=== PATIENT | female | born 1955 | race Caucasian/White ===

== ENCOUNTER 2017-05-19 19:41 | Observation (INO) | payer BC ==
--- NOTE | 2017-05-19 20:22 | RAD ---
HISTORY: Syncope COMPARISONS: May 17, 2010 VIEWS:1: Single frontal portable view of the chest at 8:19 PM FINDINGS: LINES AND TUBES: None. CARDIOMEDIASTINAL SILHOUETTE: The cardiomediastinal silhouette is normal for portable technique. PLEURA: The costophrenic angles are sharp. No pleural abnormalities are noted. LUNG PARENCHYMA: The lungs are clear. ABDOMEN: The upper abdomen is clear. There is no subphrenic gas. BONES AND SOFT TISSUES: There is postsurgical change to the right shoulder IMPRESSION: NO ACTIVE CARDIOPULMONARY DISEASE.
[2017-05-19 20:32] LABS: Urine Bacteria Absent (Absent); Urine Bilirubin Negative (Negative); Urine Glucose Negative (Negative); Urine Nitrite Negative (Negative)
--- NOTE | 2017-05-19 20:41 | RAD ---
HISTORY: Syncope COMPARISONS: May 17, 2010 TECHNIQUE: Multiple contiguous axial CT scans were obtained of the head without intravenous contrast. FINDINGS: HEMORRHAGE/INFARCT: There is no hemorrhage or acute infarct. MASSES/SHIFT: There is no mass or shift. EXTRA-AXIAL SPACES: There are no extra-axial fluid collections. SULCI AND VENTRICLES: The sulci and ventricles are normal in size and position for the patient's stated age. CEREBRUM: There are no focal parenchymal abnormalities. BRAINSTEM: There are no focal parenchymal abnormalities. CEREBELLUM: There are no focal parenchymal abnormalities. VESSELS: The vessels are grossly normal. PARANASAL SINUSES: The paranasal sinuses are clear. ORBITS: The orbits are unremarkable. BONES AND SOFT TISSUE: No bone or soft tissue abnormalities are noted. OTHER: None IMPRESSION: NO ACUTE INTRACRANIAL PATHOLOGY.
[2017-05-19 21:12] LABS: Hematocrit 37 % (35-47); Hemoglobin 12.1 g/dl (12.0-16.0); Mean Corpuscular HGB Conc 33 g/dl (31-36); Mean Corpuscular Hemoglobin 28 pg (27-31); Mean Corpuscular Volume 86 fL (80-97); Mean Platelet Volume 9 um3 (7.4-10.4); Red Blood Count 4.31 10^6/ul (4.0-5.4); Red Cell Distribution Width 13 % (10.5-15); White Blood Count 11.4 10^3/ul (3.5-10.8)
[2017-05-19 21:32] LABS: Albumin 3.8 g/dL (3.2-5.2); BUN/Creatinine Ratio 34.5 (8-20); Calcium 9.5 mg/dL (8.6-10.3); EGFR African American 62.5 (>60); EGFR Non-African American 48.6 (>60); Globulin 3.1 g/dL (2-4); Magnesium 1.9 mg/dL (1.9-2.7); Potassium 3.4 mmol/L (3.5-5.0); Total Bilirubin 0.3 mg/dL (0.2-1.0); Total Protein 6.9 g/dL (6.4-8.9)
[2017-05-19 21:33] LABS: Troponin I 0.01 ng/mL (<0.04)
[2017-05-19] MEDS ORDERED: Acetaminophen TAB* 325 MG PO PRN (22:11)
[2017-05-19] MEDS ORDERED: CMCS: Melatonin (NF) 3 MG TAB PO PRN (22:12)
[2017-05-19] MEDS ORDERED: Ondansetron INJ* 2 MG/ML VIAL IV PRN (22:12)
--- NOTE | 2017-05-19 22:26 | ED ---
Ca Lopez Rebecca, scribed for KusumXavier on 05/19/17 at 2006 . Syncope/Near Syncope - HPI Summary HPI Summary: Pt is a 61 y/o F who presents to ED s/p syncopal episode. 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 After standing for a few minutes she had sudden onset LOC, reporting "next thing I know I was on the floor." LOC was unwitnessed, though was in the house at the time. reports LOC lasted approximately 1 minute and spontaneously resolved. Pt additionally c/o SIERRA and palpitations s/p LOC. SIERRA is currently ranked 3/10 and palpitations are resolved. Denies CP, weakness, numbness, ear pain. Denies confusion s/p LOC. Similar episode of dizziness last without without LOC. No PMHx CVA, TIA. - History Of Current Complaint Chief Complaint: EDSyncope Hx Obtained From: Patient, Family/Loader Engineer - Onset/Duration: Sudden Onset, Resolved Timing: Minutes - 1 minute Context: Unwitnessed, Loss Of Consciousness Activity At Onset: Other - Standing Aggravating Factor(s): Nothing Alleviating Factor(s): Spontaneous Resolution Associated Signs And Symptoms: Headache - 3/10 s/p LOC, Palpitations - s/p LOC - resolved Related History: Similar Episode/Dx as - Dizziness last week, no LOC - Allergies/Home Medications Allergies/Adverse Reactions: Allergies Allergy/AdvReac Type Severity Reaction Status Date / Time No Known Allergies Allergy Verified 05/19/17 19:45 PMH/Surg Hx/FS Hx/Imm Hx Endocrine/Hematology History: Denies: Hx Diabetes Cardiovascular History: Reports: Hx Hypertension Denies: Hx Congestive Heart Failure, Hx Pacemaker/ICD History: Reports: Other Problems/Disorders - bladder suspension Denies: Hx Dialysis, Hx Renal Disease Musculoskeletal History: Reports: Other Musculoskeletal History - hammer toe, shoulder surgery Sensory History: Denies: Hx Hearing Aid Neurological History: Denies: Hx CVA, Hx Transient Ischemic Attacks (TIA) Psychiatric History: Denies: Hx Panic Disorder - Cancer History Cancer Type, Location and Year: RT BREAST 2004 Hx Chemotherapy: No Hx Radiation Therapy: Yes - BREAST - Surgical History Surgery Procedure, Year, and Place: RIGHT SHOULDER ROTATOR CUFF 2004 [facility],Right breast lumpectomy-[facility] - 15-20 YRS AGOAPPENDECTOMY -1971, ARTHROSCOPIC knee,BLADDER SUSPENSION - PROLAPSE & LEAKING BLADDER- MESH USED, hammer toe-,june 2013 laproscopic shoulder-Rt X2, LEFT SHOULDER 12/2014 Infectious Disease History: No Infectious Disease History: Denies: Traveled Outside the [place] in Last 30 Days - Family History Known Family History: Positive: Hypertension, Diabetes, Other - Colon CA - Social History Lives: With Family Alcohol Use: Occasionally Smoking Status (MU): Never Smoked Tobacco Review of Systems Negative: Ear Ache Positive: Palpitations - s/p LOC - resolved. Negative: Chest Pain Neurological: Other - Denies confusion s/p LOC Positive: Headache - s/p LOC - 3/10, Syncope - Dizziness and lightheadedness with LOC. Negative: Weakness, Numbness All Other Systems Reviewed And Are Negative: Yes Physical Exam Triage Information Reviewed: Yes Vital Signs On Initial Exam: Initial Vitals Temp Pulse Resp BP Pulse Ox 98.4 F 85 16 134/73 98 05/19/17 19:46 05/19/17 19:46 05/19/17 19:46 05/19/17 19:46 05/19/17 19:46 Vital Signs Reviewed: Yes Appearance: Positive: Well-Appearing, No Pain Distress Skin: Positive: Warm, Skin Color Reflects Adequate Perfusion, Dry Head/Face: Positive: Normal Head/Face Inspection Eyes: Positive: EOMI, MJ ENT: Positive: Normal ENT inspection Neck: Positive: Supple, Nontender Respiratory/Lung Sounds: Positive: Clear to Auscultation, Breath Sounds Present Cardiovascular: Positive: RRR, Pulses are Symmetrical in both Upper and Lower Extremities Abdomen Description: Positive: Nontender, Soft Bowel Sounds: Positive: Present Musculoskeletal: Positive: Normal, Strength/ROM Intact Neurological: Positive: Normal, Sensory/Motor Intact, Alert, Oriented to Person Place, Time - [place] Coma Scale Best Eye Response: 4 - Spontaneous Best Motor Response: 6 - Obeys Commands Best Verbal Response: 5 - Oriented Glascow Coma Scale Comments: 15 Diagnostics - Vital Signs Vital Signs Temp Pulse Resp BP Pulse Ox 05/19/17 19:46 98.4 F 85 16 134/73 98 - Laboratory Result Diagrams: 05/19/17 21:00 05/19/17 21:00 Lab Statement: Any lab studies that have been ordered have been reviewed, and results considered in the medical decision making process. - Radiology CXR Xray Interpretation: No Acute Changes - NO ACTIVE CARDIOPULMONARY DISEASE Radiology Interpretation Completed By: Radiologist - CT Brain CT CT Interpretation: No Acute Changes - NO ACUTE INTRACRANIAL PATHOLOGY CT Interpretation Completed By: Radiologist - EKG 1957 Cardiac Rate: NL - 80 bpm EKG Rhythm: Sinus Rhythm EKG Interpretation: No acute changes Re-Evaluation - Re-Evaluation First Eval Re-Evaluation Time: 21:40 Change: Improved Comment: Pt is feeling better. Discussed CXR, Brain CT, EKG and lab results as well as plan to admit with the pt. Course/Dx Assessment/Plan: Pt is a 61 y/o F who presents to ED s/p syncopal episode. 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 After standing for a few minutes she had sudden onset LOC. LOC was unwitnessed. reports episode lasted approximately 1 minute and spontaneously resolved. Pt additionally c/o SIERRA and palpitations s/p LOC. SIERRA is currently ranked 3/10 and palpitations are resolved. Denies CP, weakness, numbness, ear pain. Denies confusion s/p LOC. Similar episode of dizziness last without without LOC. No PMHx CVA, TIA. EKG, Brain CT and CXR reveal no acute findings. WBC of 11.4. Discussed care of pt with Dr. Breaux who accepts pt for admission. She will be admitted with Dx of syncope. She understands and agrees. Patient medications reviewed this visit. - Diagnoses Provider Diagnoses: Syncope - Physician Notifications Discussed Care of Patient With: Woody Breaux Time Discussed With Above Provider: 21:40 Instructed by Provider To: Other - Accepts pt for admission. Discharge - Discharge Plan Condition: Good Disposition: ADMITTED TO [facility] documentation as recorded by the Ca shelton Rebecca accurately reflects the service I personally performed and the decisions made by me, Xavier Noe.
--- NOTE | 2017-05-19 23:24 | HP ---
H&P (Free Text) History and Physical: PCP: Jonah Osorio MD Cardiology: Maia Villalpando MD Date/Time of Evaluation: 05/19/2017 2200 CC: syncope HPI: Mrs Ortiz is a 61YO female HX HTN, HLD, pre-DM2, & breast CA who was at home sitting in a chair when she remembered the garage door needed closing. Upon standing she suddenly felt light-headed and her gait was unsteady, but she made it to the garage which has 4 steps. She had difficulty getting the door to close and thinks she was somewhat confused. The next thing she knew her was at her side and she was on the floor at the bottom of the steps. He states he heard the recycling get knocked over and went to check on her when she didn' t answer his call. She was awake, but confused which only lasted a minute or two. She had a similar episode of sudden light-headedness without the syncope a week ago. Other than that she does admit to an episode of syncope ~5 years ago. She denies any prodromal symptoms, specifically no chest pain, SOB, N/V, focal W /N/T, change in vision/speech/swallow, palpitations, or other. Upon awakening, she did notice some palpitations. She called her sister who is an [employer] [place] who advised her to go to the ER. She considered this over dinner and agreed. En route with her driving she had return of the light- headedness without other symptoms. PMedHx breast CA TX'd w/ lumpectomy & radiation HTN HLD pre-DM OAB Ambulatory Orders Calcium 1,200 mg PO DAILY 09/01/13 Diovan 160.25 mg PO DAILY 09/01/13 Effexor Xr 225 mg PO DAILY 09/01/13 Furosemide 20 mg PO DAILY 09/01/13 Glucosamine Chondroitin 2 tab PO DAILY 09/01/13 Potassium 10 mg PO DAILY 09/01/13 amLODIPine TAB* [Norvasc TAB*] 10 mg PO DAILY 09/01/13 Solifenacin(NF) [Vesicare(NF)] 10 mg PO DAILY 05/19/17 Spironolactone TAB* [Aldactone TAB*] 25 mg PO DAILY 05/19/17 Ultra Divide-3 1000 mg 1,280 mg PO DAILY 05/19/17 Allergies No Known Allergies Allergy (Verified 05/19/17 19:45) PSurgHx R lumpectomy R rotator repair x2 L rotator repair appendectomy hysterectomy SocHx: no tobacco, mild alcohol, no recreational drugs; lives with her ; retired high school special medical appointment clerk; full code status FamHx: Mother: HX DM, passed in her 70s 2nd CHF; Father: passed in his 70s 2nd colon CA ROS: as above, otherwise reviewed and all were negative Constitutional: NAD, normally developed, morbidly obese white female vitals: Vital Signs Temp 36.9 C 05/19/17 20:20 Pulse 81 05/19/17 21:00 Resp 21 05/19/17 21:00 BP 138/64 05/19/17 20:20 Pulse Ox 96 05/19/17 21:00 Intake & Output 05/18/17 05/19/17 05/19/17 23:59 11:59 23:59 Weight 108.862 kg HEENM: atraumatic; sclera/conjunctiva: non-icteric/clear; hearing: clinically intact; oropharynx: clear, mucosa moist Neck: soft tissue: non-tender; thyroid: normal Pulmonary: clear to auscultation bilaterally, good aeration, no accessory muscle use CV: RR/RR, normal S1S2, no carotid bruit, no jugular venous distention, 2+ B DP/ PT, no edema Abdominal: soft, non-distended, non-tender, no rebound/guarding/rigidity, normoactive bowel sounds, no hepatosplenomegaly or masses, no costovertebral angle tenderness Musculoskeletal: general:grossly intact; gait: unsteady Integumental: normal appearance and texture of exposed skin Psychiatric orientation: AA&O to PPS affect: calm mood: cooperative eye contact: good content: reliable responses: timely insight: good to fair Testing: Lab Results 05/19/17 05/19/17 05/19/17 Range/Units 19:54 21:00 21:00 WBC 11.4 H (3.5-10.8) 10^3/ul RBC 4.31 (4.0-5.4) 10^6/ul Hgb 12.1 (12.0-16.0) g/dl Hct 37 (35-47) % MCV 86 (80-97) fL MCH 28 (27-31) pg MCHC 33 (31-36) g/dl RDW 13 (10.5-15) % Plt Count 216 (150-450) 10^3/ul MPV 9 (7.4-10.4) um3 Neut % (Auto) 79.9 (38-83) % Lymph % (Auto) 13.0 L (25-47) % Brooks % (Auto) 4.3 (1-9) % Eos % (Auto) 2.3 (0-6) % Baso % (Auto) 0.5 (0-2) % Absolute Neuts (auto) 9.1 H (1.5-7.7) 10^3/ul Absolute Lymphs (auto) 1.5 (1.0-4.8) 10^3/ul Absolute Monos (auto) 0.5 (0-0.8) 10^3/ul Absolute Eos (auto) 0.3 (0-0.6) 10^3/ul Absolute Basos (auto) 0.1 (0-0.2) 10^3/ul Absolute Nucleated RBC 0.01 10^3/ul Nucleated RBC % 0.1 INR (Anticoag Therapy) (0.89-1.11) APTT (26.0-36.3) seconds D-Dimer, Quantitative (Less Than 230) ng/mL Sodium 137 (133-145) mmol/L Potassium 3.4 L (3.5-5.0) mmol/L Chloride 102 (101-111) mmol/L Carbon Dioxide 26 (22-32) mmol/L Anion Gap 9 (2-11) mmol/L BUN 39 H (6-24) mg/dL Creatinine 1.13 H (0.51-0.95) mg/dL Est GFR ( Amer) 62.5 (>60) Est GFR (Non-Af Amer) 48.6 (>60) BUN/Creatinine Ratio 34.5 H (8-20) Glucose 176 H (70-100) mg/dL Lactic Acid (0.5-2.0) mmol/L Calcium 9.5 (8.6-10.3) mg/dL Magnesium 1.9 (1.9-2.7) mg/dL Total Bilirubin 0.30 (0.2-1.0) mg/dL AST 16 (13-39) U/L ALT 13 (7-52) U/L Alkaline Phosphatase 73 (34-104) U/L Troponin I 0.01 (<0.04) ng/mL B-Natriuretic Peptide ( - 100) pg/mL Total Protein 6.9 (6.4-8.9) g/dL Albumin 3.8 (3.2-5.2) g/dL Globulin 3.1 (2-4) g/dL Albumin/Globulin Ratio 1.2 (1-3) Urine Color Yellow Urine Appearance Cloudy Urine pH 5.0 (5-9) Ur Specific Vernon 1.017 (1.010-1.030) Urine Protein Negative (Negative) Urine Ketones Negative (Negative) Urine Blood Negative (Negative) Urine Nitrate Negative (Negative) Urine Bilirubin Negative (Negative) Urine Urobilinogen Negative (Negative) Ur Leukocyte Esterase 2+ H (Negative) Urine WBC (Auto) 2+(11-20/hpf) H (Absent) Urine RBC (Auto) Absent (Absent) Ur Squamous Epith Cells Present H (Absent) Urine Bacteria Absent (Absent) Urine Glucose Negative (Negative) 05/19/17 05/19/17 05/19/17 Range/Units 21:00 21:00 21:00 WBC (3.5-10.8) 10^3/ul RBC (4.0-5.4) 10^6/ul Hgb (12.0-16.0) g/dl Hct (35-47) % MCV (80-97) fL MCH (27-31) pg MCHC (31-36) g/dl RDW (10.5-15) % Plt Count (150-450) 10^3/ul MPV (7.4-10.4) um3 Neut % (Auto) (38-83) % Lymph % (Auto) (25-47) % Brooks % (Auto) (1-9) % Eos % (Auto) (0-6) % Baso % (Auto) (0-2) % Absolute Neuts (auto) (1.5-7.7) 10^3/ul Absolute Lymphs (auto) (1.0-4.8) 10^3/ul Absolute Monos (auto) (0-0.8) 10^3/ul Absolute Eos (auto) (0-0.6) 10^3/ul Absolute Basos (auto) (0-0.2) 10^3/ul Absolute Nucleated RBC 10^3/ul Nucleated RBC % INR (Anticoag Therapy) 0.87 L (0.89-1.11) APTT 33.8 (26.0-36.3) seconds D-Dimer, Quantitative < 200 (Less Than 230) ng/mL Sodium (133-145) mmol/L Potassium (3.5-5.0) mmol/L Chloride (101-111) mmol/L Carbon Dioxide (22-32) mmol/L Anion Gap (2-11) mmol/L BUN (6-24) mg/dL Creatinine (0.51-0.95) mg/dL Est GFR ( Amer) (>60) Est GFR (Non-Af Amer) (>60) BUN/Creatinine Ratio (8-20) Glucose (70-100) mg/dL Lactic Acid 1.7 (0.5-2.0) mmol/L Calcium (8.6-10.3) mg/dL Magnesium (1.9-2.7) mg/dL Total Bilirubin (0.2-1.0) mg/dL AST (13-39) U/L ALT (7-52) U/L Alkaline Phosphatase (34-104) U/L Troponin I (<0.04) ng/mL B-Natriuretic Peptide 12 ( - 100) pg/mL Total Protein (6.4-8.9) g/dL Albumin (3.2-5.2) g/dL Globulin (2-4) g/dL Albumin/Globulin Ratio (1-3) Urine Color Urine Appearance Urine pH (5-9) Ur Specific Vernon (1.010-1.030) Urine Protein (Negative) Urine Ketones (Negative) Urine Blood (Negative) Urine Nitrate (Negative) Urine Bilirubin (Negative) Urine Urobilinogen (Negative) Ur Leukocyte Esterase (Negative) Urine WBC (Auto) (Absent) Urine RBC (Auto) (Absent) Ur Squamous Epith Cells (Absent) Urine Bacteria (Absent) Urine Glucose (Negative) ECG, personally reviewed: NSR rate 80, no ischemia CXR, personally reviewed: IMPRESSION: NO ACTIVE CARDIOPULMONARY DISEASE. CT brain WO, personally reviewed: IMPRESSION: NO ACUTE INTRACRANIAL PATHOLOGY. Impression: 61F presenting with syncope suspicious for arrhythmia DIAGNOSIS & PLAN Primary syncope : telemetry : trend troponin : ECHO in AM : if work up negative, follow up outpt w/ cardiology for outpatient ambulatory monitoring : supportive care hypoKalemia : replace & recheck Secondary breast CA : TX'd w/ lumpectomy & radiation : continue outpatient surveillance HTN : continue current regimen HLD : heart healthy diet pre-DM : no acute issues Admission Rational: CDU observation for syncope work up DVTp: SCDs Code Status: full HCP:
[2017-05-20] MEDS: NS 0.9% 1000 ML* 2,000 ML IV ONE ×2 (00:22→01:29)
[2017-05-20] MEDS: NS 0.9% 1000 ML* 1,000 ML IV SCH ×2 (02:45→10:46)
[2017-05-20 05:27] LABS: Hematocrit 34 % (35-47); Hemoglobin 11.3 g/dl (12.0-16.0); Mean Corpuscular HGB Conc 33 g/dl (31-36); Mean Corpuscular Hemoglobin 28 pg (27-31); Mean Corpuscular Volume 86 fL (80-97); Mean Platelet Volume 9 um3 (7.4-10.4); Red Blood Count 3.99 10^6/ul (4.0-5.4); Red Cell Distribution Width 13 % (10.5-15); White Blood Count 8.5 10^3/ul (3.5-10.8)
[2017-05-20 05:43] LABS: Calcium 8.5 mg/dL (8.6-10.3); EGFR African American 85.7 (>60); EGFR Non-African American 66.6 (>60); Potassium 3.4 mmol/L (3.5-5.0)
[2017-05-20] MEDS: Heparin VIAL(*) 5000 UNITS/ML VIAL (FIVE THOUSAND) SUBCUT SCH ×2 (06:04→14:41)
[2017-05-20] MEDS: Omeprazole CAP* 20 MG PO SCH ×2 (06:05→06:08)
[2017-05-20] MEDS ORDERED: Perflutren Lipid Microsphere* 3 ML VIAL ONE (07:44)
[2017-05-20] MEDS ORDERED: Potassium Chlor TAB* 20 MEQ TAB.ER PO ONE (07:53)
[2017-05-20] MEDS ORDERED: CMC:Solifenacin(NF) 5 MG TAB PO SCH (09:00)
[2017-05-20] MEDS ORDERED: Docusate CAP* 100 MG PO SCH (09:00)
[2017-05-20] MEDS ORDERED: amLODIPine TAB* 5 MG PO SCH (09:00)
[2017-05-20] MEDS ORDERED: Venlafaxine EXT RELEASE CAP* 75 MG PO SCH (09:00)
[2017-05-20] MEDS ORDERED: Valsartan TAB* 160 MG PO SCH (09:00)
[2017-05-20] MEDS ORDERED: Spironolactone TAB* 25 MG PO SCH (09:00)
--- NOTE | 2017-05-20 11:10 | ECHO ---
Patient: ABBEY NEWTON Rec#: [id number] : 1955 Date: 05/20/2017 Age: 61y Height: 165.1 cm / 65.0 in Weight: 108.86 kg / 239.9 lbs Sex: F BSA: 2.14 Room#: 453 Admit Date#: 05/19/2017 Type: Inpatient Referring: Woody Breaux MD Reading: Erich Schmidt MD Auditing Control Clerk: Meliza Wallace RDCS,RDMS CC: Jewels Osoroi MD Transthoracic Echocardiogram Indication: Syncope BP: 126/63 HR: 78 Rhythm: NSR Findings History: HTN, HLD, DM, breast cancer, radiation Technical Comments: The study is technically limited due to poor acoustic windows. Completed 0835 Left Ventricle: The left ventricular chamber size is normal. Mild concentric left ventricular hypertrophy is observed. Global left ventricular wall motion and contractility are within normal limits. There is normal left ventricular systolic function. The estimated ejection fraction is 55-60%. The assessment of diastolic function is non-diagnostic. Left Atrium: The left atrial chamber size is normal. Right Ventricle: The right ventricular chamber size and systolic function are within normal limits. The right ventricle wall thickness is mildly increased. Right Atrium: The right atrium appears normal. Aortic Valve: The aortic valve is trileaflet. Systolic excursion of the aortic valve is normal. There is no evidence of aortic regurgitation. There is no evidence of aortic stenosis. Mitral Valve: The mitral valve leaflets appear normal. There is trace to mild mitral regurgitation. There is no evidence of mitral stenosis. Tricuspid Valve: The tricuspid valve leaflets are normal. There is trace tricuspid regurgitation. No pulmonary hypertension is noted. Pulmonic Valve: There is no evidence of pulmonic valve thickening. There is no evidence of pulmonic regurgitation. Pericardium: There is no significant pericardial effusion. Aorta: The aortic root appears normal. There is no dilatation of the aortic arch. Pulmonary Artery: The main pulmonary artery appears normal. Venous: The inferior vena cava appears normal in size. There is a greater than 50% respiratory change in the inferior vena cava dimension. Contrast: Definity was used to optimize study. A total of 3 ml was used Conclusions The study is technically limited due to poor acoustic windows. Mild concentric left ventricular hypertrophy is observed. There is normal left ventricular systolic function. The estimated ejection fraction is 55-60%. There is trace to mild mitral regurgitation with mitral annular calcification. There is trace tricuspid regurgitation. Compared to report of study from 06/29/2016, the diastolic function is non-diagnostic on current study. Measurements Name Value Normal Range RVIDd (AP) 2D 3.04 cm (0.9 - 2.6) RVDdMajor (2D) 2.6 cm (2.2 - 4.4) IVSd (2D) 1.2 cm (0.6 - 1) LVPWd (2D) 1.1 cm (0.6 - 1) LVIDd (2D) 4.3 cm (3.6 - 5.4) LVIDs (2D) 2.7 cm - LV FS (2D) 37 % (25 - 45) Aortic Annulus 2.2 cm (1.4 - 2.6) Ao root diameter (2D) 2.9 cm (2.1 - 3.5) Ascending Ao 2.9 cm (2.1 - 3.4) Aortic arch 2.6 cm (1.8 - 3.4) LA dimension (AP) 2D 3.6 cm (2.3 - 3.8) LAd ISD 4CH 5.8 cm (2.9 - 5.3) LA ISD 4CH W 4 cm (2.5 - 4.5) Name Value Normal Range LA ESV SP 4CH (A/L) 67.05 ml - LA ESV SP 4CH (MOD) 61.47 ml - Name Value Normal Range MV E-wave Vmax 0.9 m/sec - MV deceleration time 154 msec - MV A-wave Vmax 0.9 m/sec - MV E:A ratio 1 ratio - P. vein S-wave Vmax 0.6 m/sec - P. vein D-wave Vmax 0.5 m/sec - P. vein S:D Vmax ratio 1.2 ratio - P. vein A-wave duration 78 msec - LV septal e' Vmax 0.09 m/sec - LV lateral e' Vmax 0.14 m/sec - LV E:e' septal ratio 10 ratio - LV E:e' lateral ratio 6.4 ratio - Name Value Normal Range AV Vmax 1.4 m/sec - AV VTI 28.4 cm - AV peak gradient 8 mmHg - AV mean gradient 4.5 mmHg - LVOT Vmax 1.1 m/sec - LVOT VTI 23 cm - LVOT peak gradient 5 mmHg - LVOT mean gradient 2.3 mmHg - Name Value Normal Range TR Vmax 2.4 m/sec - TR peak gradient 23 mmHg - RAP 3 mmHg - RVSP 26 mmHg - IVC diameter 1.6 cm - Name Value Normal Range PV Vmax 0.9 m/sec - PV peak gradient 3.2 mmHg -
[2017-05-20 12:53] VITALS: BP 132/67
--- NOTE | 2017-05-23 09:19 | PN ---
Hospitalist Progress Note . HOSPITALIST DISCHARGE NOTE: See dc instructions and summary by me. Patient stable for dc dc instructions reviewed with the patient at the bedside. DC patient home today.
--- NOTE | 2017-05-23 16:28 | DS ---
CC: Dr. Jewels Osorio; Dr. Gualberto Villalpando * DISCHARGE SUMMARY: DATE OF ADMISSION: 05/19/17 DATE OF DISCHARGE: 05/20/17 PRIMARY CARE PROVIDER: Dr. Jewels Osorio. PUBLIC HEALTH INSPECTOR: Dr. Gualberto Villalpando. STATUS DURING HOSPITALIZATION: Observation. PRINCIPAL DISCHARGE DIAGNOSIS: Syncope secondary to most likely antihypertensive regimen effect. SECONDARY DIAGNOSES: 1. Borderline diabetes. 2. Overactive bladder. 3. Hyperlipidemia. 4. Hypertension. 5. History of breast cancer status post lumpectomy/radiation. DISCHARGE MEDICATION REGIMEN: 1. Decrease valsartan to 40 mg by mouth twice daily from 160 mg by mouth daily. Discontinue Hydrochlorothiazide component of Diovan. Continue: 1. Amlodipine 10 mg by mouth daily. 2. Calcium 1200 mg by mouth daily. 3. Effexor XR 225 mg by mouth daily. 4. Furosemide 20 mg by mouth daily. 5. Glucosamine 2 tabs by mouth daily. 6. Potassium 10 mEq by mouth daily. 7. Vesicare 10 mg by mouth daily. 8. Spironolactone 25 mg by mouth daily. 9. Ultra Liberty-3 1000 mg/1280 mg by mouth daily. HISTORY OF PRESENT ILLNESS AND HOSPITAL COURSE: Please see the H and P by Dr. Woody Breaux on 05/19/17. In brief, Ms. Ortiz is a 61-year-old female who was at home in her usual condition when she stood up to go to the kitchen and remembered that she needed to close garage door, she noticed sudden onset of lightheadedness and that her gait was unsteady, but pushed herself to get into the garage and pushed the garage side door man button, the patient fell into her recycling pile, which broke her fall and she did not experience any injuries related to that. She did fall into the lateral position. She was confused for approximately a minute or two. Her was home. She did notice some palpitations. She contacted her sister who is a nurse practitioner who advised her to go to the emergency room. She did not go immediately and ate dinner. She finally agreed and en route to the hospital, she had further lightheadedness without any other symptoms. The patient came to the hospital with normal vital signs, a pulse of 81, blood pressure 130s/60s. She was admitted to the hospitalist service on telemetry monitoring. Her serial troponins were negative. Her echocardiogram did not show any valvular disease. There was no effusion. There was a normal preserved ejection fraction and the diastolic evaluation was nondiagnostic. The patient did not have obvious pulmonary hypertension. I did note that the patient's history included periodic lightheadedness and certainly with positioning. We discussed the possibility that her ample antihypertensive regimen might be too high, so that at certain times she was getting lightheaded. Her blood pressures in the hospital were certainly well controlled, if not on the low side and I suggested that she discontinue some of her antihypertension regimen as a trial of sorts. The patient agreed to stop her hydrochlorothiazide component of Diovan and decrease the valsartan component to 80 mg by mouth total daily down from 160. This is a trial and should be followed up by her outpatient team. She was reluctant to stopping more of her medications and wanted to see how she felt. I encouraged her to get a home blood pressure monitor and monitor her blood pressure at different times during the day. Ms. Ortiz is certainly stable at this point. She did have a brain CT that did not show any intracranial abnormality. The patient is accompanied by her and he is going to assure she follows up with her medical team. TIME SPENT: Total time taken to discharge Ms. Ortiz was 45 minutes; greater than half that time spent going over the discharge instructions [id number] with the patient. CONDITION AT DISCHARGE: Stable. [id number]/[id number] #: [id number] SHEKHAR
== END 2017-05-20 17:09 | disposition home or self-care (01) ==
LOC: ED 19:41 → MEDTELE 22:03
PROVIDERS: ADMIT Hospitalist; ATTEND Internal Medicine
DX: R55 Syncope and collapse (principal); I10 Essential (primary) hypertension; R73.03 Prediabetes; N32.81 Overactive bladder; E78.5 Hyperlipidemia, unspecified; Z85.3 Personal history of malignant neoplasm of breast; E66.01 Morbid (severe) obesity due to excess calories; I34.0 Nonrheumatic mitral (valve) insufficiency; I51.7 Cardiomegaly
CPT/HCPCS: 36415; 70450; 71010; 80048; 80053; 81003; 81015; 83605; 83735; 83880; 84484; 85025; 85027; 85379; 85610; 85730; 87086; 93005; 93306; 96372; 99283; A9270-GY; C8929; G0378; J1644